=== PATIENT | female | born 1975 ===

== ENCOUNTER 2018-04-26 12:28 | Emergency (ER) | payer BC ==
[2018-04-26 12:30] VITALS: RESP 18; TEMP 98.7; BMI 22.2
--- NOTE | 2018-04-26 13:01 | ED PDOC ---
Arrival/HPI - General Time Seen by Provider: 04/26/18 12:35 Historian: Patient, EMS - History of Present Illness Narrative History of Present Illness (Text): 04/26/18 12:58 Patient is a 43 yo female, denies past medical history, presents to the Emergency Department after sustaining a fall while performing a handstand prior to arrival. 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 SHE DENIES HITTING HER HEAD. Denies loss of consciousness. Denies neck pain. Denies abdominal pain. Denies incontinence of urine or stool. She was unable to stand up secondary to pain. She has difficulty moving her right leg, she states she is afraid to move due to the pain. Denies any prior history of back problems or injury. Denies chest pain or shortness of breath. Denies any numbness or weakness to upper extremities. Family/Social History Family/Social History: Unknown Family HX Allergies/Home Meds Allergies/Adverse Reactions: Allergies Penicillins Allergy (Verified 04/26/18 12:52) URTICARIA Review of Systems - Review of Systems Constitutional: absent: Fevers Respiratory: absent: SOB Cardiovascular: absent: Chest Pain Gastrointestinal: absent: Abdominal Pain Genitourinary Female: absent: Dysuria, Frequency, Hematuria, Urine Output Changes Musculoskeletal: Back Pain. absent: Neck Pain Skin: absent: Rash Neurological: Gait Changes, Other (has difficutly moving right leg she is uncertain whether due to pain or weakness). absent: Headache, Dizziness, Speech Changes Endocrine: absent: Polyuria Hemo/Lymphatic: absent: Easy Bleeding Physical Exam Vital Signs Reviewed: Yes Vital Signs Temp Pulse Resp BP Pulse Ox 04/26/18 12:29 98.7 F 74 18 112/71 100 Temperature: Afebrile Blood Pressure: Normal Pulse: Regular Respiratory Rate: Normal Appearance: Positive for: Uncomfortable Pain Distress: Severe Mental Status: Positive for: Alert and Oriented X 3 - Systems Exam Head: Present: Atraumatic, Normocephalic Pupils: Present: PERRL Extroacular Muscles: Present: EOMI Mouth: Present: Moist Mucous Membranes Pharnyx: No: ERYTHEMA Nose (Internal): Present: Normal Inspection, No Active Bleeding Neck: Present: Normal Range of Motion. No: Meningeal Signs Respiratory/Chest: Present: Clear to Auscultation. No: Respiratory Distress Cardiovascular: Present: Regular Rate and Rhythm, Murmurs Abdomen: No: Tenderness, Distention, Peritoneal Signs, Guarding, McBurney's Point Tender, Rovsing's Sign Present Rectal: No: Gross Blood Back: Present: Midline Tenderness, Paraspinal Tenderness, Pain with Leg Raise, Other (she has no ecchymosis or soft tissue swelling noted, however there is severe pain with palpation of lower lumbar region with right paraspinal tenderness, pain with straight leg testing of right leg greater than 90 degress) Upper Extremity: Present: NORMAL PULSES Lower Extremity: Present: Other (no bony hip or knee pain, no ankle pain, strong distal pulses) Neurological: Present: Other (she has intact and symmetric reflexes in both lower extremities at the knees, she has NO saddle anesethesia, she has difficulty lifting right leg off the stretcher ? due to pain, she is able to wiggle her toes without difficulty, sensation intact to touch throughout lower extremities bilaterally, no weakness noted in upper extremities, no incontinence noted) Skin: Present: Warm, Dry. No: Laceration, Abscess, Abrasion Psychiatric: Present: Alert, Oriented x 3, Normal Insight, Normal Concentration Medical Decision Making ED Course and Treatment: 04/26/18 13:05 Patient seen immediately upon arrival. She has pain on palpation of back with no abdominal pain. No stepoffs. Reflexes intact. No incontinence of urine or stool. No head injury or neck pain noted or reported. She has no abdominal pain. Unable to ambulate or bear weight. She has no prior history of back injury. She is able to move and wiggle toes. I reviewed pain medication options with patient, she will administered Toradol and if ineffective will administer Morphine. Risks and side effects reviewed with patient. 04/26/18 13:10 MRI checklist reviewed with patient. She has had prior MRI in past with no adverse effect. MRI reviewed, shows: Impression: L4-5. Dessiccation of the disc material and moderate facet arthropathy without stenosis. No acute findings. Pain significantly improved after Morphine. She is able to stand up, ambulate. On re-evaluation, no rib or chest pain. No shortness of breath. She is neurovascularly intact. MRI findings reviewed with patient in laymen's terms. She will be discharged with Percocet to be used only if tylenol and motrin ineffective. Risks of narcotic medication reviewed with patient and family. Stressed need for close follow-up with PMD. - RAD Interpretation Radiology Orders: 04/26/18 12:54 SPINAL CANAL LUMBAR W/O CONT [MRI] Stat Disposition/Present on Arrival - Present on Arrival Any Indicators Present on Arrival: No - Disposition Have Diagnosis and Disposition been Completed?: Yes Diagnosis: Back pain, Back contusion Disposition: HOME/ ROUTINE Disposition Time: 14:45 Patient Plan: Discharge Condition: GOOD Discharge Instructions (ExitCare): Low Back Pain (DC), Contusion (DC) Additional Instructions: Rest. Take tylenol or motrin as needed for pain. Take stronger pain medication (Percocet) only as directed and as needed. For any weakness, incontinence, bloody urine or stool, any abdominal pain, any chest pain or shortness of breath, get rechecked. Follow-up with your physician in 1-2 days. Prescriptions: oxyCODONE/Acetaminophen [Percocet 5/325 mg Tab] 1 ea PO Q6 PRN #10 tab PRN Reason: severe pain Referrals: Meera Lima MD [Primary Care Provider] - Follow up with primary Forms: [employer] (Arabic)
[2018-04-26] MEDS ORDERED: Morphine 2 mg/ml ISec IVP STA (13:35)
[2018-04-26 13:36] LABS: ALB/GLOB RATIO 1.6 (1.1-1.8); ALT/SGPT 38 U/L (7-56); AST/SGOT 26 U/L (14-36); BLOOD UREA NITROGEN 17 mg/dL (7-21); CALCIUM 8.8 mg/dL (8.4-10.5); GFR NON-AFRICAN AMERICAN > 60
[2018-04-26 13:58] LABS: URINE BILIRUBIN NEGATIVE (NEGATIVE); URINE BLOOD NEGATIVE (NEGATIVE); URINE GLUCOSE (UA) NEGATIVE (NEGATIVE); URINE LEUKOCYTE ESTERASE NEGATIVE Leu/uL (NEGATIVE); URINE PROTEIN NEGATIVE mg/dL (<30 mg/dL); URINE UROBILINOGEN 0.2 E.U./dL (<1 E.U./dL)
[2018-04-26 14:00] LABS: URINE APPEARANCE CLEAR (CLEAR)
[2018-04-26 14:01] LABS: HCG,QUALITATIVE URINE NEGATIVE (NEGATIVE)
--- NOTE | 2018-04-26 14:41 | MRI ---
Date of service: 04/26/2018 PROCEDURE: MR LUMBAR SPINE WITHOUT CONTRAST HISTORY: right leg pain and weakness after fall COMPARISON: None available. TECHNIQUE: Multiecho multiplanar sequences were performed through the lumbar spine without the use of intravenous contrast. FINDINGS: Normal lumbar lordosis. Vertebral body heights are preserved. Marrow signal unremarkable. Conus medullaris unremarkable at the level of L1 Paraspinal soft tissues are unremarkable. T12-L1: No disc herniation, spinal canal stenosis or neural foraminal narrowing. L1-2: No disc herniation, spinal canal stenosis or neural foraminal narrowing. L2-3: No disc herniation, spinal canal stenosis or neural foraminal narrowing. L3-4: No disc herniation, spinal canal stenosis or neural foraminal narrowing. L4-5: There is desiccation of the disc material. There is moderate facet arthropathy. No evidence of stenosis L5-S1: No disc herniation, spinal canal stenosis or neural foraminal narrowing. OTHER FINDINGS: None. IMPRESSION: L4-5. Desiccation of the disc material and moderate facet arthropathy without stenosis. No acute findings
[2018-04-26 16:15] VITALS: BP 110/73; PULSE 62; O2SAT 99
[2018-04-26 16:37] LABS: BASO # 0.01 K/mm3 (0.0-2.0); BASO % 0.1 % (0.0-3.0); EOS % 0.1 % (1.5-5.0); GRAN # 4.61 (1.4-6.5); GRAN % 66.8 % (50.0-68.0); HEMOGLOBIN 12.8 g/dL (12.0-16.0); LYMPH # 1.9 (1.2-3.4); LYMPH % 27.2 % (22.0-35.0); MEAN CELL VOLUME 78.2 fl (80.0-105.0); MEAN CORPUSCULAR HEMOGLOBIN 25.7 pg (25.0-35.0); MEAN CORPUSCULAR HGB CONC 32.8 g/dl (31.0-37.0); MEAN PLATELET VOLUME 10.9 fl (7.0-11.0); MONO # 0.4 (0.1-0.6); MONO % 5.8 % (1.0-6.0); RBC 4.99 10^6/uL (3.5-6.1); RED CELL DISTRIBUTION WIDTH 13.9 % (11.5-14.5); WHITE BLOOD COUNT 6.9 10^3/uL (4.5-11.0)
== END 2018-04-26 17:19 | disposition home or self-care (01) ==
LOC: ED 12:28
DX: S20.229A Contusion of unspecified back wall of thorax, initial encounter (principal); W01.0XXA Fall on same level from slipping, tripping and stumbling without subsequent striking against object, initial encounter; Y93.42 Activity, yoga; Y92.009 Unspecified place in unspecified non-institutional (private) residence as the place of occurrence of the external cause; M54.9 Dorsalgia, unspecified
CPT/HCPCS: 72148; 80053; 81003; 84703; 85025; 96374; 96375; 99285; J1885; J2270